=== PATIENT | female | born 1965 | race Caucasian/White ===

== ENCOUNTER 2017-03-16 21:42 | Emergency (ER) | payer BC ==
[~2017-03-16] VITALS: Ht 172.7 cm; Wt 77.1 kg
[2017-03-16 21:56] VITALS: BP 141/82
[2017-03-17] MEDS ORDERED: CYCLOBENZAPRINE HCL 10 MG TAB PO ONE (00:30)
== END 2017-03-17 00:35 | disposition home or self-care (01) ==
LOC: ER 21:46
DX: M54.32 Sciatica, left side (principal); Z88.6 Allergy status to analgesic agent